=== PATIENT | female | born 1995 | race Two or more races ===

== ENCOUNTER 2022-01-10 17:19 | Inpatient (IN) | payer OTHER ==
[~2022-01-10] VITALS: Ht 152.4 cm; Wt 3.2 kg
[2022-01-14] MEDS ORDERED: IBUPROFEN800 MG PO (07:21)
== END 2022-01-14 14:26 | disposition home or self-care (01) | DRG 788 ==
LOC: LDR 17:19 → O/R 01-11 11:13 → OB/GYN 01-11 13:13
PROVIDERS: ADMIT Specialist; ATTEND Specialist
PROC: 4A1HXCZ Monitoring of Products of Conception, Cardiac Rate, External Approach (ICD-10-PCS; 2022-01-10)
PROC: 10D00Z1 Extraction of Products of Conception, Low, Open Approach (ICD-10-PCS; principal; 2022-01-11 10:00)
DX: O42.02 Full-term premature rupture of membranes, onset of labor within 24 hours of rupture (principal); O62.1 Secondary uterine inertia; O76 Abnormality in fetal heart rate and rhythm complicating labor and delivery; Z3A.39 39 weeks gestation of pregnancy; Z37.0 Single live birth; Z20.822 Contact with and (suspected) exposure to COVID-19